=== PATIENT | male | born 1990 ===

== ENCOUNTER 2020-07-12 06:30 | Day surgery (SDC) | payer OTHER ==
[2020-07-12] MEDS ORDERED: AMOX1TAB5 PO (10:57)
[2020-07-12] MEDS ORDERED: ULTRACET PO (10:58)
== END 2020-07-12 16:14 | disposition home or self-care (01) ==
LOC: CIR.AMB 06:30
PROVIDERS: ATTEND Surgery
DX: L02.31 Cutaneous abscess of buttock (principal); Z20.822 Contact with and (suspected) exposure to COVID-19